=== PATIENT | female | born 1940 | race Caucasian/White ===

== ENCOUNTER → 2017-01-13 | Outpatient (CLI) | payer MEDICARE ==
[~2017-01-13] MED LIST: ASPIR 8181 MG PO; LEVEMIR100 UNIT/1 SQ; NORVASC2.5 MG PO; NOVOLOG100 UNIT/2 SQ; PAXIL DPS20 MG PO; PEPCID DPS20 MG PO; TYLENOL DPS325 MG PO; VITAMIN D31000 UNIT PO; XANAX DPS1 MG PO; ZESTRIL DPS40 MG PO; ZOCOR DPS40 MG PO; ZOFRAN4 MG PO
== END | disposition home or self-care (01) ==
LOC: RAD.S 07:53
DX: R10.9 Unspecified abdominal pain (principal); K80.20 Calculus of gallbladder without cholecystitis without obstruction

== ENCOUNTER → 2017-01-21 | Outpatient (CLI) | payer MEDICARE | END | disposition home or self-care (01) | LOC: RAD.S 07:51 | DX: R13.10 Dysphagia, unspecified (principal); K21.9 Gastro-esophageal reflux disease without esophagitis; K44.9 Diaphragmatic hernia without obstruction or gangrene; K22.8 Other specified diseases of esophagus ==

== ENCOUNTER → 2017-02-25 | Outpatient (CLI) | payer MEDICARE | END | disposition home or self-care (01) | LOC: RAD.S 02-23 08:00 | DX: K21.9 Gastro-esophageal reflux disease without esophagitis (principal); R11.0 Nausea ==

== ENCOUNTER 2017-02-26 12:35 | Inpatient (IN) | payer MEDICARE ==
[~2017-02-26] VITALS: Ht 157.5 cm; Wt 70.2 kg
--- NOTE | ~2017-02-26 | FD ---
ADMIT: 03/08/2017 RM/LOC: 618 [facility] MR#: [id number] [address] [address] [address] [place] [address] Final Diagnosis SEX: F AGE: 76 : 1940 ADMISSION DATE: 03/08/2017 DISCHARGE DATE: 03/09/2017 FINAL DIAGNOSIS: Hiatal hernia with no pathologic alteration of the hernia sac. DARRELL López / Daniel Sood MD / carlos alberto JOB #: [id number] CC: Daniel Sood MD, Attending Physician Sanford Chi DO, Family Physician
[2017-03-10] MEDS ORDERED: NORVASC2.5 MG PO (06:12)
[2017-03-10] MEDS ORDERED: PAXIL DPS20 MG PO (06:12)
[2017-03-10] MEDS ORDERED: ZOCOR DPS40 MG PO (06:13)
[2017-03-10] MEDS ORDERED: ZESTRIL DPS40 MG PO (06:13)
[2017-03-10] MEDS ORDERED: PEPCID DPS20 MG PO (06:13)
[2017-03-10] MEDS ORDERED: VITAMIN D31000 UNIT PO (06:14)
[2017-03-10] MEDS ORDERED: LEVEMIR100 UNIT/1 SQ (06:14)
[2017-03-10] MEDS ORDERED: NOVOLOG100 UNIT/2 SQ (06:14)
[2017-03-10] MEDS ORDERED: XANAX DPS1 MG PO (06:14)
[2017-03-10] MEDS ORDERED: TYLENOL DPS325 MG PO (06:15)
[2017-03-10] MEDS ORDERED: ZOFRAN4 MG PO (06:15)
[2017-03-10] MEDS ORDERED: ASPIR 8181 MG PO (06:15)
--- NOTE | 2017-03-29 08:57 | OR ---
ADMIT: 03/08/2017 RM/LOC: 618 [facility] MR#: [id number] [address] [facility] [address] [place], [place] [id number] [address] [place] [address] Operative/Delivery Room Report SEX: F AGE: 76 : 1940 Corrected: 03/09/2017 0414 djs SURGERY DATE: 03/05/2017 SURGEON: Daniel Sood MD [employer] REPRESENTATIVE: Kana Esqueda MD PREPROCEDURE DIAGNOSIS: Large hiatal hernia with chronic reflux and postprandial pain and vomiting. POSTPROCEDURE DIAGNOSIS: Large hiatal hernia with chronic reflux and postprandial pain and vomiting. PROCEDURE: Laparoscopic hiatal hernia repair with gastropexy. INDICATIONS: Patient is a 76-year-old female, who has a very large hiatal hernia. After preoperative workup and problems with postprandial nausea, vomiting, and pain, has presented for hiatal hernia repair and probable gastropexy. FINDINGS: The patient was taken to the operating room. General endotracheal anesthesia was induced. The patient's abdomen was prepped and draped in normal sterile fashion. The case was begun by making a transverse, supraumbilical 5 mm skin incision using #11 blade. A retractable 5 mm port was placed in the abdomen, the abdomen was insufflated with CO2 to an intra-abdominal pressure of 15 mmHg. A camera was placed showing no bowel or vascular injury. Two right subcostal 5-mm ports were placed under direct vision. Two left subcostal ports, one 5 and one 11 were placed under direct vision. We placed a Ulysses arm on the bed, placed a liver retractor within the abdomen, reflected the left lobe of the liver anteriorly. The patient was noted to have at least 75% of her stomach up into her chest, possibly even had the appearance of more of a type 3 paraesophageal hiatal hernia. Using Harmonic scalpel dissection, we divided the gastrohepatic ligament, divided the phrenoesophageal membrane, some short gastric vessels at the upper part of the gastric fundus. We continued this dissection well up into the mediastinum identifying the hernia sac and freeing it out of the mediastinum completing a retroesophageal window. We did remove a lot of the hernia sac using Harmonic scalpel. There was a little bit of a small vessel bleeding, controlled with Harmonic scalpel. We were able to continue to suction until the stomach rested comfortably within the intraabdominal space. We then closed down the diaphragmatic crura posteriorly with 4 or 5 interrupted 0 Tycron sutures. We then pexy the top part of the fundus of the stomach to the left triangular ligament with 3-0 Tycron sutures. I then placed a 19-German round ASHLEY drain up into the mediastinum through our right lateral 5 mm port site and sutured into place with 0 silk suture. We then performed a wide gastropexy using an Endo Stitch ADMIT: 03/08/2017 RM/LOC: 618 [facility] MR#: [id number] [address] [place] [id number] [address] [place] [address] Operative/Delivery Room Report SEX: F AGE: 76 : 1940 in 3 areas along the gastric body about 3-5 cm from each other extending along the left subcostal margin. We then made small incisions, used a suture passer to grab these pre-placed Endo-stitch sutures and pexy the stomach to the undersurface of the anterior abdominal wall in a wide fashion. We then closed the 11 mm fascial port site with 2 interrupted 0 Vicryl sutures. 0.5% Marcaine was injected subdermally, subfascially for postoperative analgesia. We closed the incisions with interrupted 4-0 Vicryl subcuticular skin stitches. Wounds were cleaned, dried, and dressed. The patient tolerated the procedure without difficulty, transferred to recovery room in good condition. Daniel Sood MD/ carlos alberto JOB #: [id number] CC: Daniel Sood, Attending Physician Sanford Chi, [facility] Physician Corrected: 03/09/2017 0414 yadi
== END 2017-03-09 10:55 | disposition home or self-care (01) | DRG 328 ==
LOC: WOR 03-05 07:58 → 6PED 03-05 07:58
PROVIDERS: ADMIT Surgery
DX: K44.9 Diaphragmatic hernia without obstruction or gangrene (principal); E11.9 Type 2 diabetes mellitus without complications; I10 Essential (primary) hypertension; K21.9 Gastro-esophageal reflux disease without esophagitis; E78.5 Hyperlipidemia, unspecified; F41.9 Anxiety disorder, unspecified; Z79.4 Long term (current) use of insulin; Z96.659 Presence of unspecified artificial knee joint